=== PATIENT | female | born 1980 | race Caucasian/White ===

== ENCOUNTER 2024-05-10 20:21 | Emergency (ER) | payer OTHER ==
[~2024-05-10] VITALS: Ht 157.5 cm; Wt 83.2 kg
[2024-05-10 20:33] VITALS: BP 138/89; PULSE 77; RESP 14; TEMP 98.2; O2SAT 99
[2024-05-10 21:50] LABS: APPEARANCE,URINE CLEAR (CLEAR); BILIRUBIN,URINE NEGATIVE (NEGATIVE); BLOOD, URINE NEGATIVE (NEGATIVE); COLOR,URINE YELLOW (YELLOW); LEUKOCYTE ESTERASE ,URINE NEGATIVE (NEGATIVE); NITRITE, URINE NEGATIVE (NEGATIVE); PROTEIN,URINE NEGATIVE (NEGATIVE); UGLUCOSE NEGATIVE (NEGATIVE); UROBILINOGEN,URINE 0.2 EU/dL (0.2 - 1)
[2024-05-10 22:04] LABS: HIV RAPID SCREEN NON-REACTIVE (NON REACTIV)
[2024-05-11] MEDS ORDERED: METR-520 PO (00:17)
== END 2024-05-11 00:21 | disposition home or self-care (01) ==
LOC: MED 20:21
DX: R10.2 Pelvic and perineal pain (principal); Z11.3 Encounter for screening for infections with a predominantly sexual mode of transmission
CPT/HCPCS: 81003; 81025; 86592; 87210; 87491; 99283